=== PATIENT | male | born 1950 | race Caucasian/White ===

== ENCOUNTER 2018-02-23 08:35 | Day surgery (SDC) | payer MEDICARE ==
[2018-02-22 14:50] VITALS: BMI 22.0
[~2018-02-23 08:35] MED LIST: Cyclopentolate 1% Opth Drop 2 ML BOT FS SCH; Fluorouracil 100 MG, Enoxaparin Sodium 25 MG, EPINEPHrine 0.3 MG in Ophthalmic Irrigati... IVPB SCH; Phenylephrine 2.5% Ophth Soln 5 ML BOT FS SCH
[2018-02-23] MEDS ORDERED: Phenylephrine 2.5% Ophth Soln 5 ML BOT ONE (09:07)
[2018-02-23] MEDS ORDERED: Cyclopentolate 1% Opth Drop 2 ML BOT ONE (09:07)
[2018-02-23] MEDS ORDERED: Midazolam HCl 2 mg/2 ml Vial ONE (10:07)
[2018-02-23] MEDS ORDERED: PROPOFOL 20 ML ONE (10:08)
--- NOTE | 2018-02-23 12:04 | OP ---
DATE OF PROCEDURE: 02/23/2018 PREOPERATIVE DIAGNOSIS: Rhegmatogenous retinal detachment, left eye. POSTOPERATIVE DIAGNOSIS: Rhegmatogenous retinal detachment, left eye. PROCEDURE: Pars plana vitrectomy and retinal detachment repair, left eye. SURGEON: Dr. Baljit Carter ANESTHESIA: Local with monitored anesthesia care. COMPLICATIONS: None. PROCEDURE IN DETAIL: The patient was identified in the preoperative holding area. Appropriate infor med consent for the planned surgical procedure on the left eye had been obtained. The patient was tr ansported to the operative suite. Appropriate cardiopulmonary monitoring was established. Local ane sthesia obtained using retrobulbar and modified Van Lint lid block using 50/50 mixture of 4% lidocain e, 0.75% bupivacaine. The patient was prepped and draped in the usual sterile manner for ophthalmic surgery on the left eye. Lid speculum was placed in the left eye. The 25-gauge trocars were placed in conjunctiva and sclera supratemporally, inferotemporally, and supranasally. Infusion line was phillip zulmea inferotemporally. Light pipe and vitreous cutter were inserted into the eye. Core vitrectomy wa s performed. Special attention was turned to the vitreous base 360 degrees trimmed back using wide f ield viewing, tear was noted at the 1 o'clock position. Posterior drain retinotomy was created super ior to the nerve. Complete air fluid exchange was performed with 10 minutes being allowed for fluid to drain posteriorly. A 360 laser was placed using endolaser delivery device. 28% sulfur hexafluori de fluoride gas was infused into the eye. Trocars were removed. Eye was noted to retain pressure we ll except the superior nasal sclerotomy was sutured closed. Retrobulbar Kenalog and subconjunctival Ancef were placed. Atropine and antibiotic ointment placed, and the eye was patched and shielded. T he patient was taken to the postoperative recovery unit in good condition having suffered no immediat e perioperative complications. DISCHARGE INSTRUCTIONS: The patient was instructed to keep patch and shield on, avoid lifting or ana ding, and follow up in the morning with Dr. Carter.
[2018-02-23] MEDS ORDERED: PROPOFOL 200 MG/20 ML VIAL ONE (15:36)
== END 2018-02-23 11:46 | disposition home or self-care (01) ==
LOC: SDC 08:35
PROVIDERS: ATTEND Ophthalmology Retina Specialist
PROC: 08T53ZZ Resection of Left Vitreous, Percutaneous Approach (ICD-10-PCS; principal; 2018-02-23)
DX: H33.012 Retinal detachment with single break, left eye (principal); Z86.12 Personal history of poliomyelitis; Z79.899 Other long term (current) drug therapy
CPT/HCPCS: 67025; J0171; J1650; J2250; J2704; J9190

== ENCOUNTER 2021-01-13 08:51 | Outpatient (CLI) | payer MEDICARE | END 2021-01-13 08:52 | disposition home or self-care (01) | LOC: SCSRAD 08:51 | PROVIDERS: ATTEND Psychiatry & Neurology Neurology | DX: M54.5 Low back pain (principal); M81.0 Age-related osteoporosis without current pathological fracture | CPT/HCPCS: 72100 ==